=== PATIENT | female | born 1990 | race Hispanic/Latino ===

== ENCOUNTER 2024-03-06 22:10 | Emergency (ER) | payer SELFPAY ==
[2024-03-07] MEDS ORDERED: Morphine 4 MG/ML VIAL ONE (00:06)
[2024-03-07] MEDS ORDERED: Ondansetron ODT 4 MG TAB ONE (00:14)
[2024-03-07] MEDS ORDERED: Lidocaine 2% Viscous 10 mL, Alum & Magn 30 mL SSW SCH (00:15)
== END 2024-03-07 00:24 | disposition home or self-care (01) ==
LOC: ERS 22:10
DX: K29.00 Acute gastritis without bleeding (principal); Z87.891 Personal history of nicotine dependence
CPT/HCPCS: 76705; 96372; J2270; Q0162